=== PATIENT | female | born 1960 | race Caucasian/White ===

== ENCOUNTER 2016-09-04 08:28 | Emergency (ER) | payer OTHER ==
[2016-09-04 08:37] VITALS: BP 147/84
--- NOTE | 2016-09-04 09:40 | UC ---
Respiratory Complaint HPI - HPI Summary HPI Summary: cough for one week. OTC meds not helping. - History of Current Complaint Chief Complaint: UCGeneralIllness Stated Complaint: COUGH,SORE THROAT Time Seen by Provider: 09/04/16 09:22 Hx Obtained From: Patient Hx Last Menstrual Period: 08/07/16 ?: No Onset/Duration: Gradual Onset Timing: Constant Severity Initially: Moderate Severity Currently: Moderate Character: Cough: Nonproductive Aggravating Factors: Deep Breaths, Recumbent Position Alleviating Factors: Bronchodilator Associated Signs And Symptoms: Positive: Chills, Wheezing, URI, Nasal Congestion , Hoarseness. Negative: Fever, Pleuritic Chest Pain, Hemoptysis, Dizziness, Calf Pain, Calf Swelling, Edema, Sinus Discomfort - Allergies/Home Medications Allergies/Adverse Reactions: Allergies Allergy/AdvReac Type Severity Reaction Status Date / Time Aspirin Allergy Unknown Verified 09/04/16 08:37 Reaction Details Home Medications: Home Medications Dextromethorphan Polistirex [Robitussin 12 Hour Cough] DAILY 09/04/16 [History] PMH/Surg Hx/FS Hx/Imm Hx Endocrine History Of: Denies: Diabetes Respiratory History Of: Reports: Asthma Denies: COPD, Bronchitis, Pneumonia, Pulmonary Embolism Cancer History Of: Denies: Breast Cancer - Surgical History Surgical History: Yes Surgery Procedure, Year, and Place: TONSILECTOMY,. Vein surgery left leg - Family History Known Family History: Positive: Other - osteoporosis, - Social History Alcohol Use: Occasionally Substance Use Type: None Smoking Status (MU): Former Smoker Review of Systems All Other Systems Reviewed And Are Negative: Yes Physical Exam Triage Information Reviewed: Yes Appearance: Well-Appearing, No Pain Distress, Well-Nourished - dry cough during exam. Vital Signs: Initial Vital Signs Temp 99.2 F 09/04/16 08:30 Pulse 84 09/04/16 08:30 Resp 16 09/04/16 08:30 BP 147/84 09/04/16 08:30 Pulse Ox 96 09/04/16 08:30 Vital Signs Reviewed: Yes Eye Exam: Normal Eyes: Positive: Conjunctiva Clear. Negative: Conjunctiva Inflamed ENT Exam: Normal ENT: Positive: Normal ENT inspection, Hearing grossly normal, Pharynx normal. Negative: Pharyngeal erythema, Nasal congestion, Nasal drainage, TMs normal, TM bulging, TM dull, TM red, Tonsillar swelling, Tonsillar exudate, Trismus, Muffled/hoarse voice Neck exam: Normal Neck: Negative: Supple, Nontender, No Lymphadenopathy, Nuchal Rigidity, Tenderness @, Enlarged Nodes @ Respiratory Exam: Normal Respiratory: Positive: Chest non-tender, Normal breath sounds, No respiratory distress, No accessory muscle use. Negative: Lungs clear, Respiratory distress , Decreased breath sounds, Accessory muscle use, Crackles, Rhonchi, Stridor, Wheezing Cardiovascular Exam: Normal Cardiovascular: Positive: RRR, No Murmur, Pulses Normal, Brisk Capillary Refill Abdominal Exam: Normal Abdomen Description: Positive: Nontender, No Organomegaly, Soft Bowel Sounds: Positive: Present Musculoskeletal Exam: Normal Musculoskeletal: Positive: Strength Intact, ROM Intact, No Edema Neurological Exam: Normal Neurological: Positive: Alert, Muscle Tone Normal, Fatigued Psychological Exam: Normal Psychological: Positive: Normal Response To Family, Age Appropriate Behavior Skin Exam: Normal Skin: Negative: rashes UC Diagnostic Evaluation - Laboratory O2 Sat by Pulse Oximetry: 96 Respiratory Course/Dx - Differential Dx/Diagnosis Differential Diagnosis/HQI/PQRI: Airway Obstruction, Foreign Body, Aspiration, Asthma, Bronchitis, CHF, Pulmonary Edema, Exacerbation Of COPD, Influenza, Lower Resp Infection, Pneumothorax, Pulmonary Embolism, SARS, Sinusitis, Tuberculosis Provider Diagnoses: acute bronchitis. Discharge - Discharge Plan Condition: Good Disposition: HOME Prescriptions: Acetaminop/Codeine 30 MG TAB* [Tylenol/Codeine 30 MG TAB*] 1 tab PO Q8H PRN #20 tab MDD 3 PRN Reason: Cough Acetaminophen W/ Codeine [Acetaminophen/Codeine #3 300-30 mg] 1 tab PO BID PRN # 20 tab MDD 2 PRN Reason: Cough Azithromyxin JARRED (NF) [Z-Jarred (Zithromax) 250 mg tabs #6] 2 tab PO .TODAY, THEN 1 DAILY #6 tab Patient Education Materials: Acute Bronchitis (ED) Referrals: Shaniqua Jaeger MD [Primary Care Provider] - If Needed
== END 2016-09-04 09:48 | disposition home or self-care (01) ==
LOC: UCCORT 08:28
DX: J20.9 Acute bronchitis, unspecified (principal); Z88.6 Allergy status to analgesic agent; Z87.891 Personal history of nicotine dependence
CPT/HCPCS: 99212; G0463

== ENCOUNTER 2016-09-05 16:40 | Emergency (ER) | payer OTHER ==
[2016-09-05 16:59] VITALS: BP 140/83
--- NOTE | 2016-09-05 18:29 | UC ---
Throat Pain/Nasal Abilio HPI - HPI Summary HPI Summary: pt p/w 8 days of cough, sinus congestion/king, and lad. pt was seen here yesterday and started on abx. 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 however, cough has been putting strain on neck and pt sinus king has been getting worse. - History of Current Complaint Chief Complaint: UCHeadache Stated Complaint: SEVERE KING/NECK PAIN Time Seen by Provider: 09/05/16 17:03 Hx Obtained From: Patient Hx Last Menstrual Period: 08/08/16 ?: No Onset/Duration: Gradual Onset, Lasting Days - 8, Still Present, Worse Since - yesterday - with neck pain and king Pain Intensity: 8 Cough: Nonproductive Associated Signs & Symptoms: Positive: Dysphagia, Sinus Discomfort, Nasal Discharge. Negative: Fever, Vomiting - Allergies/Home Medications Allergies/Adverse Reactions: Allergies Allergy/AdvReac Type Severity Reaction Status Date / Time Aspirin Allergy Unknown Verified 09/05/16 16:45 Reaction Details Home Medications: Home Medications Ibuprofen [Advil] 600 mg PO Q4HR 09/05/16 [History Confirmed 09/05/16] Phenylephrine W/ Dm-GG [Mucinex Congestion & Coug 2.5-5-100 mg/5Ml] 1 tab PO Q6HR PRN 09/05/16 [History Confirmed 09/05/16] Pseudoephedrine HCl [Sudafed Nasal Decongestan] 1 tab PO Q4HR PRN 09/05/16 [ History Confirmed 09/05/16] PMH/Surg Hx/FS Hx/Imm Hx - Additional Past Medical History Additional PMH: fibromyalgia Endocrine History Of: Denies: Diabetes Respiratory History Of: Reports: Asthma Denies: COPD, Bronchitis, Pneumonia, Pulmonary Embolism Cancer History Of: Denies: Breast Cancer - Surgical History Surgical History: Yes Surgery Procedure, Year, and Place: TONSILECTOMY,. Vein surgery left leg - Family History Known Family History: Positive: Other - osteoporosis, Negative: Cardiac Disease - Social History Lives: With Family Alcohol Use: Occasionally Substance Use Type: None Smoking Status (MU): Former Smoker Review of Systems Constitutional: Negative Skin: Negative Eyes: Negative ENT: Nasal Discharge, Other - sinus pain Respiratory: Cough Cardiovascular: Negative Gastrointestinal: Negative Genitourinary: Negative Motor: Negative Neurovascular: Negative Musculoskeletal: Myalgia - neck pain Neurological: Headache Psychological: Negative All Other Systems Reviewed And Are Negative: Yes Physical Exam Triage Information Reviewed: Yes Appearance: Well-Appearing, Well-Nourished, Pain Distress - mild Vital Signs: Initial Vital Signs Temp 99.0 F 09/05/16 16:52 Pulse 88 09/05/16 16:52 Resp 16 09/05/16 16:52 BP 140/83 09/05/16 16:52 Pulse Ox 99 09/05/16 16:52 Vital Signs Reviewed: Yes Eyes: Positive: Conjunctiva Clear. Negative: Discharge ENT: Positive: Hearing grossly normal, Pharynx normal, Nasal congestion, Nasal drainage, TMs normal, Other: - sinus tenderness. Negative: Tonsillar swelling, Muffled/hoarse voice Neck: Positive: Supple, Tenderness @ - paraspinal Respiratory: Positive: Lungs clear, Normal breath sounds, No respiratory distress, No accessory muscle use, Expiration - prolonged Cardiovascular: Positive: RRR, No Murmur Musculoskeletal: Positive: Strength Intact, ROM Intact, No Edema, Other: - paraspinal spasm Neurological: Positive: Alert, Muscle Tone Normal, Other: - cn2-12 intact bl, strength and sensation intact bl, no cerabellar signs, aox3, kernigs and brudzinskys neg Psychological: Positive: Age Appropriate Behavior Skin Exam: Normal Throat Pain/Nasal Course/Dx - Differential Dx/Diagnosis Differential Diagnosis/HQI/PQRI: Sinusitis, URI Provider Diagnoses: cervical strain, sinusitis, acute bronchitis Discharge - Discharge Plan Condition: Stable Disposition: HOME Prescriptions: predniSONE TAB* [Deltasone TAB*] 40 mg PO DAILY #10 tab Patient Education Materials: Sinusitis (ED), Cervical Strain (ED), Acute Bronchitis (ED) Referrals: Shaniqua Jaeger MD [Primary Care Provider] - (follow up in 3-5 days ) Additional Instructions: TRY USING THE NETTI POT IN THE MORNINGS DISCUSSED. YOU MUST ALWAYS USE CLEAN WATER. REMEMBER, POSTURE IS AN IMPORTANT FACTOR IN SINUS DRAINAGE. MOVE YOUR NECK, BREATHE. CORTICOSTEROID MEDICATION: You have been given a medicine of the cortisone class. This medication is used to control inflammation or allergy. It is usually only given for a short period of time, until the acute process subsides. There are usually no side effects from short-term use of cortisone-like medications. Some persons feel an increased sense of well-being and are not sleepy at bedtime. Long-term use of cortisone medications is best avoided, unless required for a severe condition. If your condition does not remit, or relapses after the course of corticosteroid medication, you should consult your physician. Contact the physician if you develop lightheadedness, black or tarry stools , swelling of the legs, or significant rapid change in weight. INHALED BRONCHODILATORS: You have received a prescription for an inhaled bronchodilator -- a medication which stimulates the airways in the lung to dilate. This improves the flow of air in asthma, bronchitis, and emphysema. These medicines have some similarity to adrenaline, and can cause similar side effects: shakiness, racing heart, and a sense of nervousness. These side effects decrease with time. Contact your doctor if these side effects are severe. Do not over-use the medicine. Too-frequent use of the inhaler may make it ineffective. Call your doctor if the inhaler is not controlling your symptoms at the prescribed doses. YOU WOULD LIKELY BENEFIT FROM OSTEOPATHIC TREATMENT. WE RECOMMEND THAT YOU FIND AN OSTEOPATHIC PHYSICIAN IN YOUR AREA WHO FOCUSES EXCLUSIVELY ON OSTEOPATHIC MANIPULATIVE MEDICINE WITH EXPERTISE IN MYOFACIAL, LYMPHATIC, VISCERAL AND INTEROSSEOUS WORK
== END 2016-09-05 18:17 | disposition home or self-care (01) ==
LOC: UCCORT 16:40
DX: J20.9 Acute bronchitis, unspecified (principal); J32.9 Chronic sinusitis, unspecified; S16.1XXA Strain of muscle, fascia and tendon at neck level, initial encounter; X50.3XXA Overexertion from repetitive movements, initial encounter; Y93.9 Activity, unspecified; Y92.9 Unspecified place or not applicable; Z88.6 Allergy status to analgesic agent; Z87.891 Personal history of nicotine dependence
CPT/HCPCS: 99212; G0463

== ENCOUNTER 2017-01-02 07:31 | Day surgery (SDC) | payer OTHER ==
--- NOTE | 2016-12-22 12:56 | HP ---
CC: Dr. Shaniqua Jaeger * ADMISSION HISTORY AND PHYSICAL: DATE OF ADMISSION: 01/02/17 ATTENDING SURGEON: Dr. Yvonne Kevin. (DICTATED BY ALISE HUI) CHIEF COMPLAINT: Symptomatic cholelithiasis. HISTORY OF PRESENT ILLNESS: This is a 56-year-old female who beginning in late August noted symptoms of right upper quadrant pain. This has been largely postprandial and related to higher fat food ingestion. She describes a sharp hot knife sensation in the right upper quadrant and radiating to the back. There has been associated nausea and vomiting as well as bloating. She denies fever or chills. She has had a total of 6 attacks, most lasting between 2 and 3 hours, but one attack lasting up to 9 hours. The last couple of attacks have had some association with dark urine, but no change in color of stools. Her family history is positive for gallbladder disease. Ultrasound was performed on 11/18/16 showing multiple gallstones but without evidence of acute cholecystitis. The common bile duct was normal in size. Lab work on the same date showed normal CBC as well as normal liver function tests and amylase. She met with Dr. Kevin on 12/15/16. Dr. Kevin has reviewed her history and workup. It was felt that she had symptomatic cholelithiasis and recommendation was made for laparoscopic cholecystectomy. The patient understands the indications, risks, benefits, and alternatives of surgery as well as expected perioperative course. She would like to proceed as scheduled with laparoscopic cholecystectomy. She has had ongoing low-grade symptoms in the past week or so and is considering trying to move her surgery up a week. PAST MEDICAL HISTORY: Asthma and environmental allergies, GERD (with history of eosinophilic esophagitis), fibromyalgia, Raynaud's syndrome, vitamin B12 deficiency, dizziness with phyllis vu symptoms (has completed much of workup including EEGs, non-contrast CT of the brain and carotids, all of which was negative, she was seen in consultation by Dr. Steele, an MRI of the brain had also been ordered but has not yet been completed). PAST SURGICAL HISTORY: Tonsillectomy, left lower extremity saphenous vein stripping. No reported surgical or anesthesia complications. CURRENT MEDICATIONS: 1. Omeprazole 20 mg once daily. 2. Flovent 1 puff q. day. 3. ProAir HFA 2 puffs p.r.n. 4. Claritin 10 mg q. day. 5. Probiotic q. day. 6. Vitamin B12 injection 1000 mcg q. month. 7. Carisoprodol 350 mg one-half tablet q.h.s. p.r.n. for back and neck pain. DRUG ALLERGIES: ASPIRIN (hives) (the patient tolerates other NSAIDs). FAMILY HISTORY: Positive for gallbladder disease in her maternal grandfather. There is no known family history of anesthesia problems, bleeding, or clotting disorder. SOCIAL HISTORY: The patient is . She has 2 children. 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 She is a former smoker, quit in 1992. She drinks up to 2 to 3 drinks 2 to 3 times per week. She denies other recreational drug use. REVIEW OF SYSTEMS: General: No additional constitutional symptoms other than those noted in the HPI. She has noted a 13-pound weight loss in the past few months because of food aversion. HEENT: No problems reported. Cardiovascular : She has a long history of arrhythmia, which has been worked up in the past. No hypertension, chest pain, or palpitations. No history of murmur. Respiratory: No recent exacerbations of her asthma, though summer time is more difficult for her. No chronic cough or shortness of breath. GI: She does have GERD symptoms, which are fairly well controlled at present. No lower GI symptoms. She did undergo colonoscopy at around age 54 with removal of multiple benign polyps and recommended followup in 3 years. No interval symptoms. : No problems reported. 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 Endocrine: No diabetes or thyroid dysfunction. Musculoskeletal: She has been evaluated by Dr. Nam for Raynaud's syndrome, but that workup was essentially negative. Neuropsych: She has seen Dr. Steele in consultation for symptoms of dizziness and phyllis vu, see above. PHYSICAL EXAMINATION GENERAL: Well-nourished, well-developed female, in no acute distress. VITAL SIGNS: Height 5 feet 3 inches, weight 145 pounds by history, temperature 97.7, blood pressure 108/64, pulse 66, respirations 16. HEENT: Pupils are equal and round, reactive. EOMs intact. No conjunctival pallor or scleral icterus. Oropharynx: Teeth in good repair. No intraoral lesions. NECK: Anterior cervical nodes are prominent but not enlarged and they are not tender. No thyromegaly or other masses. LUNGS: Clear to auscultation. No wheezes. HEART: Irregularly irregular, but only mildly so. No appreciable murmur. BREASTS: Not examined. ABDOMEN: Soft with mild tenderness in the right upper quadrant. Negative Phillips's sign. The remainder of the abdomen is soft and nontender. GENITALIA: Not done. RECTAL: Not done. BACK: No spinous process or CVA tenderness. EXTREMITIES: No edema. NEUROLOGIC: Grossly intact. SKIN: Warm and dry. No suspicious rashes or lesions noted. IMPRESSION: Symptomatic cholelithiasis. PLAN: Laparoscopic cholecystectomy. ALISE HUI [id number]/[facility] #: [id number] MTDD
[~2017-01-02 07:31] MED LIST: Buffered Lidocaine 0.9% SYRIN* 5 ML/SYR SYRINGE INTRADERM ONE; Dexamethasone TAB* 4 MG PO ONE; Famotidine IV* 10 MG/ML 2 ML (20 mg) IV ONE; Morphine INJ* 2 MG/ML 1 ML SYRINGE IV PRN; PROCHLORPERAZINE INJ 5 MG/ML 2 ML VIAL IV PRN; oxyCODONE/Acetamin 5/325 MG* TAB PO PRN
[2017-01-02 07:33] LABS: UR Preg Internal Control QC Line Present
[2017-01-02] MEDS ORDERED: Buffered Lidocaine 0.9% SYRIN* 5 ML/SYR SYRINGE ONE (07:50)
[2017-01-02] MEDS ORDERED: Dexamethasone TAB* 4 MG ONE (07:50)
[2017-01-02] MEDS ORDERED: Famotidine IV* 10 MG/ML 2 ML (20 mg) ONE (07:50)
[2017-01-02] MEDS ORDERED: Albuterol 2.5 MG/3 ML NEB.SOL* (0.083%) ONE (08:38)
[2017-01-02] MEDS ORDERED: KETAMINE HCL* 50 MG/ML 10 ML VIAL ONE (08:40)
[2017-01-02] MEDS ORDERED: Atracurium* 10 MG/ML 10 ML VIAL ONE (08:40)
[2017-01-02] MEDS ORDERED: fentaNYL* 50 MCG/ML 2 ML VIAL (100 MCG VIAL) ONE ×2 (08:40→10:25)
[2017-01-02] MEDS ORDERED: Bupivacaine 0.25% W/EPI* 50 ML VIAL ONE (08:40)
[2017-01-02] MEDS ORDERED: Midazolam* 1 MG/ML 5 ML VIAL (5 MG) ONE (08:40)
[2017-01-02] MEDS ORDERED: Morphine INJ* 10 MG/ML 1 ML SYRINGE ONE (09:10)
[2017-01-02] MEDS ORDERED: oxyCODONE/Acetamin 5/325 MG* TAB PO PRN (10:02)
[2017-01-02] MEDS ORDERED: PROCHLORPERAZINE INJ 5 MG/ML 2 ML VIAL ONE (10:18)
[2017-01-02] MEDS ORDERED: Lidocaine 2% PF * 5 ML VIAL ONE (10:18)
[2017-01-02] MEDS ORDERED: Phenylephrine INJ* 10 MG/ML 1 ML VIAL (10 MG) ONE (10:18)
[2017-01-02] MEDS ORDERED: Neostigmine Methylsulfate* 2 MG/2 ML SYRINGE ONE (10:18)
[2017-01-02] MEDS ORDERED: Propofol* 10 MG/ML 20 ML BTL IV PUSH ONE (10:18)
[2017-01-02] MEDS ORDERED: Ondansetron INJ* 2 MG/ML VIAL ONE (10:18)
[2017-01-02] MEDS ORDERED: Glycopyrrolate IV* 0.2 MG/ML 1 ML VIAL ONE (10:18)
[2017-01-02] MEDS: fentaNYL* 50 MCG/ML 2 ML VIAL (100 MCG VIAL) IV PRN ×3 (10:26→11:29)
[2017-01-02] MEDS ORDERED: oxyCODONE/Acetamin 5/325 MG* TAB ONE (10:50)
[2017-01-02 12:11] VITALS: BP 141/85
--- NOTE | 2017-01-03 10:04 | OP ---
CC: Dr. Shaniqua Helm * DATE OF OPERATION: 01/02/17 - [facility] DATE OF : 64 SURGEON: Yvonne Kevin MD ANGLESMITH: ALISE Chew ANESTHESIOLOGIST: Vitaly Younger MD ANESTHESIA: General PRE-OP DIAGNOSIS: Symptomatic cholelithiasis. POST-OP DIAGNOSIS: Symptomatic cholelithiasis. OPERATIVE PROCEDURE: Laparoscopic cholecystectomy. INDICATION: Ms. Fung is a 56-year-old woman who presented to the office with symptomatic cholelithiasis prompting the plan for surgical intervention. DESCRIPTION OF PROCEDURE: She was prepared for surgery and brought to the operating room. She was placed on the OR table in supine position and given general anesthesia. The abdomen was prepped and draped in the usual sterile fashion. After infiltrating with local anesthetic, an incision was made in the infraumbilical area and subcutaneous tissue was divided bluntly. The fascia was grasped and incised and a 0 Biosyn stitch was placed on either side of the fascial incision. A trocar was inserted into the abdomen and the abdomen was insufflated. Then, under direct visualization, a subxiphoid and two right subcostal ports were placed after infiltrating with local anesthetic. The gallbladder was visualized and elevated over the liver and dissection was begun in the region of the infundibulum. The fatty tissue around the infundibulum was dissected free from the infundibulum, thus exposed the cystic duct and the cystic common junction. The cystic duct was doubly clipped and divided and then the cystic artery was cleared, clipped, and divided. The gallbladder was taken down from the liver bed using primarily electrocautery, although it was friable enough that it pulled away from the liver bed leaving some raw liver bed surface after the gallbladder was removed. The bleeding from the liver bed was controlled with combination of electrocautery and Surgicel. The gallbladder was removed from the liver bed and placed in an EndoCatch bag and withdrawn from the abdomen through the subxiphoid port. The right upper quadrant was irrigated with saline and irrigation fluid was evacuated and then under direct visualization all ports were removed. The previously placed 0 Biosyn was used to close the fascia at the infraumbilical port site and 4-0 Biosyn was used to close the skin of all incisions. Steri-Strips were applied. All sponge and instrument counts were correct. The patient tolerated the procedure well and was transferred to Recovery in a stable condition. [id number]/[facility] #: [id number] NIKKI
== END 2017-01-02 12:35 | disposition home or self-care (01) ==
LOC: OR 07:31
PROVIDERS: ATTEND Surgery
DX: K80.10 Calculus of gallbladder with chronic cholecystitis without obstruction (principal); J45.909 Unspecified asthma, uncomplicated; K21.9 Gastro-esophageal reflux disease without esophagitis; E53.8 Deficiency of other specified B group vitamins
CPT/HCPCS: 81025; 88304; A9270-GY; J0780; J2250; J2270; J2405; J2704; J3010

== ENCOUNTER 2018-06-11 09:52 | Emergency (ER) | payer OTHER ==
--- OUTSIDE RECORDS SUMMARY | 2018-06-11 11:28 | XMS REPORT | Continuity of Care Document ---
:1960 External Reference #:[id number] Author Name Tamika Del Angel Care Team Providers Name Role Phone Shaniqua Jaeger MD Primary Care Physician Unavailable Payers Type Date Identification Numbers Payment Provider Subscriber Policy Number: [id number] [employer] More [employer] Number: [id number] [address] PayID: [id number] [place] [address] Advance Directives Description No Information Available Problems Date Description Provider Status Onset: 07/17/2016 Dizziness Amarilys Steele M.D. Active Onset: 07/17/2016 Margie vu Amarilys Steele M.D. Active Onset: 09/15/2017 Seizure Thierry Sandoval M.D. Active Onset: 09/15/2017 Skin sensation disturbance Thierry Sandoval M.D. Active Onset: 12/24/2017 Musculoskeletal tenderness Thierry Sandoval M.D. Active Onset: 12/24/2017 White matter disease, unspecified Thierry Sandoval M.D. Active Onset: 12/24/2017 Transient altered mental status Thierry Sandoval M.D. Active Onset: 10/14/2017 Essential hypertension Thierry Sandoval M.D. Active Onset: 10/14/2017 Electroencephalogram abnormal Thierry Sandoval M.D. Active Family History Date Family Member(s) Problem(s) Comments Mother Fibromyalgia Mother Arthritis Mother Diabetes Social History Type Date Description Comments Sex Unknown Marital Status Occupation Disabled ETOH Use Occasionally consumes alcohol ETOH Use consumes 3-4 glasses per week Tobacco Use Start: Unknown End: Patient is a former 1/2 ppd for 15 Unknown smoker years. quit in 1992 Recreational Drug Use Denies Drug Use Smoking Status Reviewed: 05/17/18 Patient is a former 1/2 ppd for 15 smoker years. quit in 1992 Exercise Type/Frequency Exercises regularly Allergies, Adverse Reactions, Alerts Date Description Reaction Status Severity Comments 02/15/2016 Aspirin Allergic asthma, Active hives, trouble Urticaria swallowing Medications Medication Date Status Form Strength Qnty SIG Indications Ordering Provider Cyanocobalamin Active Solution 1000mcg/M 1.5 Unknown /0000 L milliliters intramuscula r [id number]. Benadryl Active Capsules 25mg 1 cap as Unknown Allergy /0000 needed Carisoprodol Active Tablets 350mg 1/2-1 tab by Unknown /0000 mouth as needed Proair HFA Active Aerosol 108(90Bas 2 puffs by Unknown /0000 e) mouth every mcg/Act 4 hours as needed Omeprazole Active Capsules DR 40mg 1 by mouth Unknown /0000 every day Probiotic Active Capsules 1 by mouth Unknown /0000 every day Claritin Active Capsules 10mg 1 tab daily Unknown /0000 Flovent HFA Active Aerosol 220mcg/Ac inhale two Unknown /0000 t puffs by mouth twice a day as needed Nasonex Active Suspension 50mcg/Act two sprays Unknown /0000 each nostril once daily as needed. Vitamin D Active Capsules 500mg 1 tab po qd Unknown /0000 Lyrica Active Capsules 50mg 1 tab po bid Unknown /0000 Multi For Her Active Tablets once a day Unknown /0000 Escitalopram Active Tablets 5mg Take One Unknown Oxalate /0000 Half Tablet By Mouth Once Daily For 4 Days Then Take One Tablet By Mouthevery Day Diltiazem HCL Active Tablets 30mg Take One Unknown /0000 Tablet By Mouth Twice A Day Hydrocodone-Mata 12/22 Hx Tablets 5-325mg 15tab 1 or 2 Yvonne Keaton taminophen /2016 s tablets by Herberth mouth every MD 4-6 hours as needed for moderately severe pain Lidoderm 03/07 Hx Patches 5% 30uni 1 apply to R20.8 ts affected [facility], area 12 M.D. hours on, 12 hours off Symbicort Hx Aerosol 160-4.5mc 2 puff twice Unknown /0000 g/Act a day - 07/16 Calcium 00 Hx Capsules 200-100-3 Unknown 600/Magnesium /0000 3.3mg-mg- 300/Vitamin D Unit Ibuprofen Hx Capsules 200mg as needed Unknown /0000 - 05/16 Cartia XT Hx Caps ER 120mg Take One Unknown /0000 24HR Capsule By - Mouth Every /2017 Immunizations Description No Information Available Vital Signs Date Vital Result Comment 05/17/2018 11:32am Height 64 inches 5'4" Weight 157.50 lb Heart Rate 74 /min BP Systolic 130 mmHg BP Diastolic 84 mmHg BMI (Body Mass Index) 27.0 kg/m2 02/12/2018 9:35am Height 64 inches 5'4" Weight 160.00 lb Heart Rate 70 /min BP Systolic Sitting 132 mmHg BP Diastolic Sitting 88 mmHg Respiratory Rate 16 /min BMI (Body Mass Index) 27.5 kg/m2 12/24/2017 2:17pm Height 64 inches 5'4" Weight 157.00 lb Heart Rate 77 /min BP Systolic 136 mmHg BP Diastolic 90 mmHg BMI (Body Mass Index) 26.9 kg/m2 10/14/2017 9:18am Height 64 inches 5'4" Weight 148.00 lb Heart Rate 70 /min BP Systolic 134 mmHg BP Diastolic 98 mmHg Respiratory Rate 16 /min Pain Level 6 O2 % BldC Oximetry 99 % BMI (Body Mass Index) 25.4 kg/m2 09/15/2017 8:33am Height 64 inches 5'4" Weight 145.00 lb Heart Rate 78 /min Respiratory Rate 16 /min BMI (Body Mass Index) 24.9 kg/m2 01/30/2017 8:55am Heart Rate 60 /min Respiratory Rate 16 /min Body Temperature 98.5 F 01/09/2017 11:03am Heart Rate 60 /min BP Systolic 118 mmHg BP Diastolic 66 mmHg Respiratory Rate 16 /min Body Temperature 98.3 F 12/22/2016 9:52am Height 63.5 inches 5'3.50" Weight 147.00 lb Heart Rate 66 /min BP Systolic 108 mmHg BP Diastolic 64 mmHg Respiratory Rate 16 /min Body Temperature 97.7 F BMI (Body Mass Index) 25.6 kg/m2 12/15/2016 1:47pm Height 63.5 inches 5'3.50" Weight 147.00 lb Heart Rate 72 /min BP Systolic 138 mmHg BP Diastolic 72 mmHg Respiratory Rate 16 /min Body Temperature 98.8 F BMI (Body Mass Index) 25.6 kg/m2 07/17/2016 8:46am Height 63.5 inches 5'3.50" Weight 152.00 lb Heart Rate 68 /min BP Systolic Sitting 122 mmHg BP Diastolic Sitting 84 mmHg Respiratory Rate 16 /min BMI (Body Mass Index) 26.5 kg/m2 03/07/2016 11:13am Height 63.5 inches 5'3.50" Weight 155.00 lb Heart Rate 64 /min BP Systolic Sitting 128 mmHg BP Diastolic Sitting 80 mmHg Body Temperature 99.4 F Pain Level 4 BMI (Body Mass Index) 27.0 kg/m2 02/15/2016 10:00am Height 63.5 inches 5'3.50" Weight 153.50 lb Heart Rate 64 /min BP Systolic Sitting 110 mmHg BP Diastolic Sitting 80 mmHg Respiratory Rate 14 /min Body Temperature 98.5 F Pain Level 4 BMI (Body Mass Index) 26.8 kg/m2 Results Test Date Facility Test Result H/L Range Note Laboratory test [facility] Miscellaneous Test See Comment [address] [place] [address] [phone] CSF West Nile [facility] CSF West Nile Negative Negative Igg/Igm 8 [place] [address] [phone] CSF West Nile Virus IgM Ab Negative Negative CSF [place] Interpretation See Comment 2 CSF Cell Count 01/12/2018 [facility] Body Fluid Cerebral Spinal [address] [place], [place] [id number] [phone] Body Fluid Appearance Clear Body Fluid Color Colorless CSF Tube # 4 Body Fluid Volume 1 mL Body Fluid WBC 1 /mcL Body Fluid RBC 1 /mcL Body Fluid Lymph 70 % Body Fluid Craig 30 % Body Fluid Total Cells Counted 20 Fluid Reviewed By MD (SEE NOTE) 3 CSF Culture & 01/12/2018 [facility] CSF Culture SEE RESULT [address] [place] [address] [phone] CSF Studies 01/12/2018 [facility] CSF Protein 47 mg/dL High 15 -[address] [place], [place] [address] [phone] CSF Glucose 65 mg/dL N 40-70 Oligoclonal Bands <pending> CSF Immunoglobulin G (Igg) <pending> CSF Angiotension Conv Enz <pending> Viral Culture Non Respiratory See Comment 5 Body Fluid Protein 01/12/2018 [facility] Body Fluid Type TNP () [address] [place] [address] [phone] BF Total Protein TNP () 7 BF Albumin TNP () 8 Oligoclonal Bands 01/12/2018 [facility] CSF Oligoclonal [address] [place] [address] [phone] Serum Oligoclonal Bands 0 bands Oligoclonal Proteins Interpret 0 bands <4 9 Laboratory test 01/12/2018 [facility] Lyme Disease CSF <pending > finding [address] [place] [address] [phone] CSF Immunoglobulin 01/12/2018 [facility] CSF Immunoglobulin 0.50 <=0. G (Igg) [address] [place] [address] [phone] CSF Igg 3.2 mg/dL <=8.1 10 CSF Albumin 24.6 mg/dL <=27.0 11 CSF IgG/Albumin Ratio 0.13 <=0.21 CSF Immunoglobulin G Synthesis 0.03 mg/24h <=12 Immunoglobulin G 1250 mg/dL 767 - 1590 Albumin 4880 mg/dL Abnormal 12 Serum IgG/Albumin Ratio 0.26 <=0.40 13 Herpes Simplex 01/12/2018 [facility] HSV 1 PCR, Negative Negative Virus PCR CSF [address] [place] [address] [phone] HSV 2 PCR, CSF Negative Negative 14 Laboratory test 01/12/2018 [facility] RPR CSF Negative Negative [address] [place] [address] [phone] CSF Angiotension Conv Enz 1.3 U/L 0.0-2.5 16 Coccidiodes Antibody CSF TNP () 17 Cryptococcal Antigen TNP Negative 18 Protein 01/12/2018 [facility] Total 7.3 g/dL 6.3 - Electrophoresis [address] Protein(Pep) 7.9 [place] [address] [phone] Albumin 3.6 g/dL 3.4-4.7 Alpha-1 Globulin 0.3 g/dL 0.1-0.3 Alpha-2 Globulin 0.9 g/dL 0.6-1.0 Beta Globulin 1.0 g/dL 0.7-1.2 Gamma Globulin 1.5 g/dL 0.6-1.6 Albumin/Globulin Ratio 0.99 Impression See Comment 19 Basic Metabolic Panel 01/12/2018 [facility] Sodium 140 mmol/L N 135-145 [address] [place] [address] [phone] Potassium 4.2 mmol/L N 3.5-5.0 Chloride 102 mmol/L N 101-111 Co2 Carbon Dioxide 30 mmol/L N 22-32 Anion Gap 8 mmol/L N 2-11 Glucose 103 mg/dL High 70-100 Blood Urea Nitrogen 11 mg/dL N 6-24 Creatinine 0.76 mg/dL N 0.51-0.95 BUN/Creatinine Ratio 14.5 N 8-20 Calcium 9.2 mg/dL N 8.6-10.3 Egfr Non- 79.0 >60 Egfr 95.6 >60 20 Comp Metabolic Panel 01/30/2017 [facility] Sodium 137 mmol/L N 133-145 [address] [place] [address] [phone] Potassium 3.8 mmol/L N 3.5-5.0 Chloride 103 mmol/L N 101-111 Co2 Carbon Dioxide 29 mmol/L N 22-32 Anion Gap 5 mmol/L N 2-11 Glucose 85 mg/dL N 70-100 Blood Urea Nitrogen 10 mg/dL N 6-24 Creatinine 0.68 mg/dL N 0.51-0.95 BUN/Creatinine Ratio 14.7 N 8-20 Calcium 8.9 mg/dL N 8.6-10.3 Total Protein 7.0 g/dL N 6.4-8.9 Albumin 4.2 g/dL N 3.2-5.2 Globulin 2.8 g/dL N 2-4 Albumin/Globulin Ratio 1.5 N 1-3 Total Bilirubin 0.60 mg/dL N 0.2-1.0 Alkaline Phosphatase 44 U/L N 34-104 Alt 12 U/L N 7-52 Ast 14 U/L N 13-39 Egfr Non- 89.8 N >60 Egfr 115.5 N >60 21 CBC Auto Diff 01/30/2017 [facility] White Blood 5.8 10^3/uL N 3.5-10.[address] [place] [address] [phone] Red Blood Count 4.47 10^6/uL N 4.0-5.4 Hemoglobin 13.7 g/dL N 12.0-16.0 Hematocrit 42 % N 35-47 Mean Corpuscular Volume 93 fL N 80-97 Mean Corpuscular Hemoglobin 31 pg N 27-31 Mean Corpuscular HGB Conc 33 g/dL N 31-36 Red Cell Distribution Width 14 % N 10.5-15 Platelet Count 251 10^3/uL N 150-450 Mean Platelet Volume 9 um3 N 7.4-10.4 Abs Neutrophils 3.2 10^3/uL N 1.5-7.7 Abs Lymphocytes 2.0 10^3/uL N 1.0-4.8 Abs Monocytes 0.5 10^3/uL N 0-0.8 Abs Eosinophils 0 10^3/uL N 0-0.6 Abs Basophils 0 10^3/uL N 0-0.2 Abs Nucleated RBC 0.01 10^3/uL N Granulocyte % 54.6 % N 38-83 Lymphocyte % 34.8 % N 25-47 Monocyte % 9.4 % High 1-9 Eosinophil % 0.7 % N 0-6 Basophil % 0.5 % N 0-2 Nucleated Red Blood Cells % 0.1 N Laboratory test 01/02/2017 [facility] Surgical SEE RESULT [address] [place] [address] [phone] Laboratory test 01/02/2017 [facility] (HCG) Negative N Negative [address] [place] [address] [phone] Laboratory test 02/22/2016 [facility] Erythrocyte Sed 17 mm/Hr N 0-30 [address] [place] [address] [phone] Anti Nuclear Antibody 1.3 U Abnormal 25 Centromere Auto Abs <0.2 U N 26 Celiac Panel 02/22/2016 [facility] Tissue Transglutaminase <1.2 U/mL N [address] [place] [address] [phone] Immunoglobulin A 159 mg/dL N 61 - 356 Celiac Interpretation See Comment N 28 Laboratory test 02/22/2016 [facility] TSH (Thyroid 2.29 mcIU/mL N 0.34-5.[address] Stim [place]) [place] [address] [phone] Rheumatoid Factor <15 IU/mL N <15 30 Anca AB Ser If 02/22/2016 [facility] C-Anca Negative N Negative [address] [place] [address] [phone] P-Anca Negative N Negative 31 Laboratory test 02/22/2016 [facility] C Reactive 4.67 mg/L N < 5.00 32 finding [address] [facility] [place] [address] [phone] Creatine Kinase(CK) 56 U/L N 10-223 33 Angiotensin Converting Enzyme 18 U/L N 8 - 53 34 Sophie Igg AB Reflex 02/22/2016 [facility] SS-A/Ro Antibody <0.2 U N [address] [place] [address] [phone] SS-B/La Antibody <0.2 U N 36 Sm (Tejeda) IgG Antibody <0.2 U N 37 U1-nRNP Antibody <0.2 U N 38 Scl-70 (Scleroderma) Antibody <0.2 U N 39 Riana-1 Antibody <0.2 U N 40 Laboratory test 02/22/2016 [facility] Anti Double <12.3 IU/mL N 41 finding 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 A negative result in a patient with appropriate exposure history and symptoms consistent with neuroinvasive Lyme disease should not be used to exclude infection. Testing for antibodies to Lyme Borrelia species in serum should be performed. ADDITIONAL INFORMATION This test was developed and its performance characteristics determined by [facility] in a manner consistent with CLIA requirements. This test has not been cleared or approved by the U.S. Food and Drug Administration. Lyme [employer] ASSEMBLER Infection IgG, S See Comment RESULT: Sample for reflex testing Test Performed by: [facility] [place] [address] 2 No antibodies to WNV detected. Repeat testing in 10-14 days if clinical suspicion persists. ADDITIONAL INFORMATION This test has been modified from the fish bait processing supervisor's instructions. Its performance characteristics were determined by [facility] in a manner consistent with CLIA requirements. This test has not been cleared or approved by the U.S. Food and Drug Administration. Test Performed by: [facility] [place] [address] 3 No evidence of an acute inflammatory response. No evidence of malignancy. Reviewed by Janine Benton MD 4 SEE RESULT BELOW Name: BLAIRE FUNG : [address]: Heri Brady MD Acct: [id number] Unit: [id number] AGE: 57 Location: PAIN Re01/12/18 SEX: F Status: REG REF SPEC: [id number] CAROLYN: 01/12/18 [facility] [address]: Thierry Sandoval MD REQ: [id number] RECD: 01/12/18 STATUS: RACH KIMBLE DR: Heri Jaeger MD _ SOURCE: CSF SPDESC: ORDERED: CSF Cult/GS/S, AFB Cult Smear/R Procedure Result Reported Site CSF Gram Stain Final 01/12/18- 1253 ML No Neutrophils Observed No Organisms Seen Preparation By Cytospin Smear CSF Culture Final 01/16/18- 0849 ML No Growth Day 4 Acid Fast Stain - Direct Final 01/12/18- 1524 ML AFB Smear Result No Acid Fast Bacillus Present (Negative) Preparation By Cytospin Smear Due to limited sensitivity of the smear, results should be used as an adjunct in evaluating the patient's status. This specimen has been sent to referral laboratory for mycobacterial culture. * - [facility] . END OF REPORT DEPARTMENT OF PATHOLOGY, [address] [place] [address] Genaro Lutz M.D. Director [facility] # [id number] 5 SOURCE: CEREBROSPINAL FLUID VIRAL CULTURE, NON RESPIRATORY FINAL No growth after 42 days of incubation. Test Performed by: No growth after 14 days of incubation. Test Performed by: [address] [address] CORRECTED REPORT --- Corrected on 02/26/18 1115 --- Culture Result previously reported as: See Comment SOURCE: CEREBROSPINAL FLUID VIRAL CULTURE, NON RESPIRATORY FINAL No growth after 14 days of incubation. Test Performed by: [address] [address] 6 REVISED RESULTS Electrophoresis, Protein, BF was cancelled on 01/15/2018 at 12:26; Quantity not sufficient. PREVIOUSLY REPORTED CSF (Reported 01/13/2018 13:26) 7 Electrophoresis, Protein, BF was cancelled on 01/15/2018 at 12:26; Quantity not sufficient. 8 Electrophoresis, Protein, BF was cancelled on 01/15/2018 at 12:26; Quantity not sufficient. Test Performed by: [address] [address] 9 The oligoclonal band assay detected 3 or fewer unique IgG bands in the CSF. This is a negative result. Test Performed by: [address] [address] 10 ADDITIONAL INFORMATION This test has been modified from the fish bait processing supervisor's instructions. Its performance characteristics were determined by [facility] in a manner consistent with CLIA requirements. This test has not been cleared or approved by the U.S. Food and Drug Administration. 11 ADDITIONAL INFORMATION This test has been modified from the fish bait processing supervisor's instructions. Its performance characteristics were determined by [facility] in a manner consistent with CLIA requirements. This test has not been cleared or approved by the U.S. Food and Drug Administration. 12 REFERENCE VALUE 3200 - 4800 13 Test Performed by: [facility] - [address] [address] 14 Test Performed by: [facility] [place] [address] 15 Test Performed by: [facility] - [address] [address] 16 This test was developed and its performance characteristics determined by [facility]. The U.S. Food and Drug Administration has not approved or cleared this test; however, FDA clearance or approval is not currently required for clinical use. The results are not intended to be used as the sole means for clinical diagnosis or patient management decisions. Performed by [facility], [address] [place] [id number] [email or web address], Raymon Benjamin MD - Lab. Director Test Performed by: [facility] [address] [place] [id number] 17 Cocci CF and ID, CSF was cancelled on 01/15/2018 at 12:26; Quantity not sufficient. Test Performed by: [facility] - [address] [address] 18 REVISED RESULTS Cryptococcus Ag Screen w/Titer, CSF was cancelled on 01/15/2018 at 12:26; Quantity not sufficient. PREVIOUSLY REPORTED Negative (Reported 01/13/2018 21:54) A single negative result does not exclude the diagnosis of cryptococcosis. (Reported 01/13/2018 21:54) Test Performed by: [facility] - [facility] [address] [place] [address] CORRECTED REPORT --- Corrected on 01/15/18 1330 --- CSF Crypto AG previously reported as: Negative A single negative result does not exclude the diagnosis of cryptococcosis. Test Performed by: [facility] [address] [place] [address] 19 RESULT: No apparent monoclonal protein on serum electrophoresis. Test Performed by: [facility] - [facility] [address] [place] [address] 20 Because ethnic data is not always readily available, this report includes an eGFR for both -Americans and non- Americans. The National Kidney Disease Education Program (NKDEP) does not endorse the use of the MDRD equation for patients that are not between the ages of 18 and 70, are , have extremes of body size, muscle mass, or nutritional status, or are non- or non-. According to the National Kidney Foundation, irrespective of diagnosis, the stage of the disease is based on the level of kidney function: Stage Description GFR(mL/min/1.73 m(2)) 1 Kidney damage with normal or decreased GFR 90 2 Kidney damage with mild decrease in GFR 60-89 3 Moderate decrease in GFR 30-59 4 Severe decrease in GFR 15-29 5 Kidney failure <15 (or dialysis) 21 Because ethnic data is not always readily available, this report includes an eGFR for both -Americans and non- Americans. The National Kidney Disease Education Program (NKDEP) does not endorse the use of the MDRD equation for patients that are not between the ages of 18 and 70, are , have extremes of body size, muscle mass, or nutritional status, or are non- or non-. According to the National Kidney Foundation, irrespective of diagnosis, the stage of the disease is based on the level of kidney function: Stage Description GFR(mL/min/1.73 m(2)) 1 Kidney damage with normal or decreased GFR 90 2 Kidney damage with mild decrease in GFR 60-89 3 Moderate decrease in GFR 30-59 4 Severe decrease in GFR 15-29 5 Kidney failure <15 (or dialysis) 22 SEE RESULT BELOW Name: BLAIRE FUNG : [address]: Yvonne Kevin MD Acct: [id number] Unit: [id number] AGE: 56 Location: OR Re01/02/17 SEX: F Status: DE[facility] SPEC: [id number] CAROLYN: 01/02/17-[address] [facility] [address]: Yvonne Kevin MD REQ: [id number] RECD: 01/02/17-1206 STATUS: SOUT _ ORDERED: LEVEL 3 FINAL DIAGNOSIS Gallbladder, cholecystectomy: -- Chronic cholecystitis with cholelithiasis and cholesterolosis. PRE-OPERATIVE DIAGNOSIS Calculus of gallbladder with chronic cholecystitis GROSS DESCRIPTION The specimen is received in formalin labeled, Gallbladder, and consists of a 7.2 x 2.8 x 1.1 cm intact gallbladder. The serosa is glistening kyle-pink. The wall thickness averages less than 0.1 cm. The mucosa is highly trabeculated yellow-pink with multiple encapsulated lobulated choleliths approaching the cystic duct. The lumen contains gelatinous apple green bile admixed with ample yellow lobulated choleliths ranging from 0.2 x 0.2 x 0.2 cm to 0.7 x 0[address] Tester sections are submitted in one cassette. Signed (signature on file) Genaro Lutz MD 1341 END OF REPORT * ML=Testing performed at [facility] DEPARTMENT OF PATHOLOGY, [address] [place] [address] Genaro Lutz M.D. Director [facility] # [id number] 23 If is still suspected, please repeat test after 48 to 72 hours. This test detects intact HCG only and is indicated for the early detection of . 24 Please check this week 25 Interpretation: Weak Positive (1.1-2.9) REFERENCE VALUE <=1.0 (Negative) Test Performed by: [place] [address] Telemarketing Agent: Nigel Francis II, M.D., Ph.D. 26 REFERENCE VALUE <1.0 (Negative) Test Performed by: [place] [address] Telemarketing Agent: Nigel Francis II, M.D., Ph.D. 27 REFERENCE VALUE <4.0 (Negative) Test Performed by: [place] [address] Telemarketing Agent: Nigel Francis II, M.D., Ph.D. 28 Negative serology. Celiac disease unlikely. However, approximately 10% of patients with celiac disease are seronegative. Also, patients who are already adhering to a gluten-free diet may be seronegative. If celiac disease is highly clinically suspected, consider HLA-DQ typing. Test Performed by: [facility] [place] [address] Telemarketing Agent: Nigel Francis II, M.D., Ph.D. 29 Please check this week 30 Test Performed by: [facility] [place] [address] Telemarketing Agent: Nigel Francis II, M.D., Ph.D. 31 Negative for cANCA and pANCA patterns by immunofluorescence. ADDITIONAL INFORMATION This test was developed and its performance characteristics determined by [facility] in a manner consistent with CLIA requirements. This test has not been cleared or approved by the U.S. Food and Drug Administration. Test Performed by: [facility] [place] [address] Telemarketing Agent: Nigel Francis II, M.D., Ph.D. 32 Acute inflammation: >10.00 33 Please check this week 34 Test Performed by: [place] [address] Telemarketing Agent: Nigel Francis II, M.D., Ph.D. 35 REFERENCE VALUE <1.0 (Negative) 36 REFERENCE VALUE <1.0 (Negative) 37 REFERENCE VALUE <1.0 (Negative) 38 REFERENCE VALUE <1.0 (Negative) 39 REFERENCE VALUE <1.0 (Negative) 40 REFERENCE VALUE <1.0 (Negative) Test Performed by: [place] [address] Telemarketing Agent: Nigel Francis II, M.D., Ph.D. 41 REFERENCE VALUE <30.0 (Negative) Test Performed by: [place] [address] Telemarketing Agent: Nigel Francis II, M.D., Ph.D. 42 REFERENCE VALUE <10.0 (Negative) 43 REFERENCE VALUE <10.0 (Negative) Test Performed by: [place] [address] Telemarketing Agent: Nigel Francis II, M.D., Ph.D. Procedures Date Code Description Status 09/28/2017 58349 Stress Test Completed 01/02/2017 41338 Laparoscopy Cholecystectomy Completed 01/02/2017 22609 Laparoscopy Cholecystectomy Completed 08/08/2016 68560 EEG Recording Awake & Drowsy Completed 07/22/2016 42847 EEG Recording Awake & Drowsy Completed Encounters Type Date Location Provider Dx Diagnosis Office Visit 02/12/2018 [place], R20.0 Anesthesia of 9:30a [facility] [place] skin R90.82 White matter disease, unspecified M79.7 Fibromyalgia Office Visit 12/24/2017 2:30p [place] Oswaldo Sheppard2 Dizziness and [facility] rodriguez R20.0 Anesthesia of skin R90.82 White matter disease, unspecified R40.4 Transient alteration of awareness M79.1 Myalgia Office Visit 10/14/2017 [place]Osw[place]do Neal2 Dizziness and 9:15a [facility] No rodriguez Cma M79.7 Fibromyalgia R94.01 Abnormal electroencephalogram [EEG] I10 Essential (primary) hypertension Office Visit 09/15/2017 8:30a [place] Oswaldo Sheppard2 Dizziness and [facility] rodriguez M79.7 Fibromyalgia R20.0 Anesthesia of skin R90.82 White matter disease, unspecified R94.01 Abnormal electroencephalogram [EEG] Office Visit 12/15/2016 1:30p Surgical Yvonne Keaton K80.10 [facility] Kevin MD gallbladder w chronic cholecyst w/o obstruction Office Visit 07/17/2016 9:00a [place] Cortney Rodriguez R42 Dizziness and [facility] Rose R40.4 Transient alteration of awareness Office Visit 03/07/2016 11:20a Rheumatology Teo Nam 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 at [place] [facility]05/17/2018 - Thierry Sandoval M.D.R20.0 Anesthesia of skinFollow up:Follow up in 12 weeksRecommendations:Call me 1 week after MRIR90.82 White matter disease, jikylhjjlydZ82.7 VqbbjdpmtorsT81 Dizziness and qelxswhvsO12.4 Transient alteration of awareness
[2018-06-11 11:35] VITALS: BP 133/70
--- NOTE | 2018-06-11 12:38 | UC ---
Neck Pain HPI - HPI Summary HPI Summary: Pt c/o neck, upper back and left shoulder pain. Pt states that she slipped on her deck 10 days ago and fell on buttocks and back. Pt had c6 and c7 spinal fusion 10 weeks ago. Pt has hx of fibromyalgia. - History of Current Complaint Chief Complaint: UCUpperExtremity Stated Complaint: NECK, RT SHOULDER, LOWER BACK PAIN, S/P FALL Time Seen by Provider: 06/11/18 11:32 Hx Obtained From: Patient Hx Last Menstrual Period: 08/08/16 ?: No Onset/Duration Of Injury/Symptoms: Days Mechanism Of Injury: Blunt Trauma - fall from standing Timing: Constant Onset/Duration: Sudden Onset, Lasting Days, Still Present Severity: Moderate Pain Intensity: 7 Location: Diffuse - left shoulder, upper back and shoulders Character: Dull, Aching, Stiff Aggravating Factors: Position, Movement Alleviating Factors: Nothing Associated Signs & Symptoms: Positive: Negative Related History: Other - previous neck surgery - Risk Factors Meningitis Risk Factors: Negative - Allergies/Home Medications Allergies/Adverse Reactions: Allergies Allergy/AdvReac Type Severity Reaction Status Date / Time aspirin Allergy Difficulty Verified 06/11/18 11:34 Swallowing diltiazem [From Cartia XT] Allergy Hives Verified 06/11/18 11:34 environmental Allergy abd Uncoded 01/14/18 10:16 discomfort Home Medications: Home Medications dilTIAZem HCl [Cardizem 120 MG LA] 60 mg PO DAILY 06/11/18 [History Confirmed ] PMH/Surg Hx/FS Hx/Imm Hx Previously Healthy: Yes - fibromyalgia - Surgical History Surgical History: Yes Surgery Procedure, Year, and Place: TONSILECTOMY,. Vein surgery left leg - VARICOSE VEINS. CHOLECYSTECTOMY. C-SPINE FUSION - Family History Known Family History: Positive: Other - osteoporosis, Negative: Cardiac Disease - Social History Occupation: Retired Lives: With Family Alcohol Use: Weekly Alcohol Amount: 7-8 per week Substance Use Type: None Smoking Status (MU): Former Smoker Amount Used/How Often: pack a day for 10 years Have You Smoked in the Last Year: No When Did the Patient Quit Smoking/Using Tobacco: 1992 Review Of Systems Constitutional: Positive: Negative Skin: Positive: Negative Eyes: Positive: Negative ENT: Positive: Negative Respiratory: Positive: Negative Cardiovascular: Positive: Negative Gastrointestinal: Positive: Negative Genitourinary: Positive: Negative Musculoskeletal: Positive: Arthralgia, Decreased ROM, Myalgia Neurological: Positive: Headache Psychological: Positive: Negative All Other Systems Reviewed And Are Negative: No Physical Exam Triage Information Reviewed: Yes Appearance: Pain Distress Vital Signs: Initial Vital Signs Temp 98.3 F 06/11/18 11:28 Pulse 62 06/11/18 11:28 Resp 18 06/11/18 11:28 BP 133/70 06/11/18 11:28 Pulse Ox 100 06/11/18 11:28 Vital Signs Reviewed: Yes Eye Exam: Normal ENT Exam: Normal Dental Exam: Normal Neck exam: Other - decreased ROM, Respiratory Exam: Normal Cardiovascular Exam: Normal Musculoskeletal: Positive: Strength Limited @ - +1 bialteral hand and forearm strength., ROM Limited @ - neck and bialteral shoulders. Neurological Exam: Normal Psychological Exam: Normal Skin Exam: Normal Neck Pain Course/Dx - Differential Dx/Diagnosis Differential Dx/HQI/PQRI: Cervical Fracture, Sprain, Strain, Torticollis Provider Diagnosis: Neck pain, acute, Left shoulder pain Discharge - Sign-Out/Discharge Documenting (check all that apply): Patient Departure All imaging exams completed and their final reports reviewed: Yes - Discharge Plan Condition: Stable Disposition: HOME Patient Education Materials: Shoulder Pain (ED), Neck Pain (ED) Referrals: Shaniqua Jaeger MD [Primary Care Provider] - If Needed Additional Instructions: PLEASE FOLLOW UP WITH YOUR SURGEON SOON POSSIBLE. - Billing Disposition and Condition Condition: STABLE Disposition: Home
== END 2018-06-11 12:44 | disposition home or self-care (01) ==
LOC: UCCORT 09:52
DX: M54.2 Cervicalgia (principal); M25.512 Pain in left shoulder; W01.0XXA Fall on same level from slipping, tripping and stumbling without subsequent striking against object, initial encounter; Y92.9 Unspecified place or not applicable; Z88.6 Allergy status to analgesic agent; Z88.8 Allergy status to other drugs, medicaments and biological substances; Z87.891 Personal history of nicotine dependence
CPT/HCPCS: 72125; 99212; G0463

== ENCOUNTER 2019-06-29 16:55 | Emergency (ER) | payer SELFPAY ==
--- OUTSIDE RECORDS SUMMARY | 2019-06-29 17:31 | XMS REPORT | Continuity of Care Document ---
:1960 External Reference #:[id number] Author Name Teo Nam M.D. (transmitted by agent of provider Nicolasa Scott) Address [address] [place] [address] Problems Active Problems Provider Date Dizziness Amarilys Steele M.D. Onset: 07/17/2016 Margie vu Amarilys Steele M.D. Onset: 07/17/2016 Seizure Thierry Sandoval M.D. Onset: 09/15/2017 Skin sensation disturbance Thierry Sandoval M.D. Onset: 09/15/2017 Electroencephalogram abnormal Thierry Sandoval M.D. Onset: 10/14/2017 Essential hypertension Thierry Sandoval M.D. Onset: 10/14/2017 Transient altered mental status Thierry Sandoval M.D. Onset: 12/24/2017 White matter disease, unspecified Thierry Sandoval M.D. Onset: 12/24/2017 Musculoskeletal tenderness Thierry Sandoval M.D. Onset: 12/24/2017 Dysphagia Thierry Sandoval M.D. Onset: 08/10/2018 Neck pain Thierry Sandoval M.D. Onset: 04/26/2019 Fibromyalgia Thierry Sandoval M.D. Onset: 01/13/2019 Social History Type Date Description Comments Sex Unknown ETOH Use Occasionally consumes alcohol ETOH Use consumes 3-4 glasses per week Tobacco Use Start: Unknown End: Patient is a former 1/2 ppd for 15 Unknown smoker years. quit in 1992 Recreational Drug Use Denies Drug Use Smoking Status Reviewed: 05/23/19 Patient is a former 1/2 ppd for 15 smoker years. quit in 1992 Exercise Type/Frequency Exercises regularly Allergies, Adverse Reactions, Alerts Active Allergies Reaction Severity Comments Date Aspirin Allergic asthma, hives, trouble 02/15/2016 Urticaria swallowing Tomatoes stomach aches, acid Mild 05/23/2019 reflux Elmer Allergenic Difficulty breathing Moderate 05/23/2019 Extract Envarsus Difficulty breathing, Moderate 05/23/2019 animals including dogs, cats Medications Active Medications SIG Qnty Indications Ordering Date Provider Naltrexone HCL 4.5 mg compounded in Unknown Powder capsules by mouth every day to start at 0.5 mg (max 4.5 mg) Pregabalin take 1 capsule by Unknown 50mg Capsules mouth three times a day Bactrim 1 by mouth every Unknown 400-80mg Tablets other day Breo Ellipta 1 puff inhaled daily Unknown 100-25mcg/Inh Aerosol Steva Liquid 20 Drops Twice A Day Unknown Minocycline HCL take one Unknown 100mg capsule/tablet by Capsules mouth twice daily Plaquenil 1 by mouth every day Unknown 200mg Tablets for 1 week then 2 by mouth daily ongoing Nystatin 4 milliliters four Unknown [id number]/ML times a day, swish Suspension and swallow for 10 days Nac 1 Cap A Day PO Unknown Body Bio 1 Twice A Day Unknown Saccharomyces 1 2X A Day Unknown Boulardii Interogenic Int 1` Cap A Day Unknown Ortho-Biotic 100mg Once A Day Unknown Triadphortie Furnas 1/2 teaspoon a day Unknown Photo Capsule 1tab a day po Unknown SPM 2caps a day po Unknown Magnesium 2 cap by mouth Unknown 500mg Capsules Tizanidine HCL Take One To Two Unknown 2mg Tablets By Mouth Tablets Three Times A Day as Needed Baclofen 1 tab during the day Macadam, 10mg Tablets po Shaniqua Rodriguez MD Diltiazem HCL Take One Tablet By Unknown 30mg Mouth Twice A Day Tablets Escitalopram Oxalate Take One tab Unknown 10mg Tablets Vitamin D 10,000 1 tab po qd Unknown 1000Unit Tablets Nasonex two sprays each Unknown 50mcg/Act nostril once daily Suspension as needed. Claritin 1 tab daily Unknown 10mg Capsules Probiotic 1 by mouth every day Unknown Capsules Omeprazole 1/2 by mouth every Unknown 40mg Capsules day DR Brandon DUNN 2 puffs by mouth Unknown 108(90Base) every 4 hours as mcg/Act Aerosol needed Carisoprodol 1 tab by mouth as Unknown 350mg needed Tablets Benadryl Allergy 1 cap as needed Unknown 25mg Capsules Cyanocobalamin 1.5 milliliters Unknown 1000mcg/ML intramuscular Solution [id number]. Immunizations Description No Information Available Vital Signs Date Vital Result Comment 05/23/2019 11:43am Height 64 inches 5'4" Weight 151.00 lb Heart Rate 74 /min BP Systolic Sitting 142 mmHg BP Diastolic Sitting 89 mmHg Body Temperature 98.9 F Pain Level 7 O2 % BldC Oximetry 95 % BMI (Body Mass Index) 25.9 kg/m2 04/26/2019 11:04am Height 64 inches 5'4" Weight 151.00 lb Heart Rate 72 /min BP Systolic Sitting 120 mmHg BP Diastolic Sitting 74 mmHg Respiratory Rate 18 /min BMI (Body Mass Index) 25.9 kg/m2 Results Test Acquired Date Facility Test Result H/L Range Note Catecholamine 24HR 2019 [facility] Urine Collection 24 h Urine Fract [address] [place] [address] [phone] Urine Total Volume 1000 mL Urine Norepinephrine 30 mcg/24h 15-80 Urine Epinephrine 2.4 mcg/24h <21 Urine Dopamine 124 mcg/24h 65-400 1 Sophie Igg AB Reflex 01/20/2019 [facility] SS-A/Ro Antibody <0.2 U [address] [place] [address] [phone] SS-B/La Antibody <0.2 U 3 Sm (Tejeda) IgG Antibody <0.2 U 4 APARTMENT PROPERTY MA[employer]GER Antibody, IgG <0.2 U 5 Scl-70 (Scleroderma) Antibody <0.2 U 6 Riana-1 Antibody <0.2 U 7 Laboratory test 01/20/2019 [facility] Complement C3 105 mg/dL 75 - 175 [address] [place] [address] [phone] Complement C4 26 mg/dL 14 - 40 9 Anti Double Stranded Dna AB <12.3 IU/mL 10 Porphyrins 01/20/2019 [facility] Porphyrins See Comment [address] [address] [phone] Porphyrins Interpretation See Comment 12 Total Porphyrins <1.0 g/dL <=1.0 Alkaline Phos 01/20/2019 [facility] Alkaline 67 U/L 35 - 104 Isoenzymes [address] [facility] [place] [place] [address] [phone] Alp Liver 1% 66.8 % 27.8-76.3 Alp Liver 1 44.8 IU/L 16.2-70.2 Alp Liver 2% 3.2 % 0.0-8.0 Alp Liver 2 2.1 IU/L 0.0-5.8 Alp Bone % 30.0 % 19.1-67.7 Alp Bone 20.1 IU/L 12.1-42.7 Alp Intestine % 0.0 % 0.0-20.6 Alp Intestine 0.0 IU/L 0.0-11.0 Alp Placental NotPresent 13 Anca AB Ser If 01/20/2019 [facility] C-Anca Negative Negative [address] [place] [address] [phone] P-Anca Negative Negative 14 Laboratory test 01/20/2019 [facility] Angiotension 11 U/L Abnormal 16 - 15 finding [address] [facility] Converting [address] [place] [address] Enzyme [phone] 1 ADDITIONAL INFORMATION This test was developed and its performance characteristics determined by [facility] in a manner consistent with CLIA requirements. This test has not been cleared or approved by the U.S. Food and Drug Administration. Test Performed by: [facility] [email or web address] [facility] [address] [place] [address] 2 REFERENCE VALUE <1.0 (Negative) 3 REFERENCE VALUE <1.0 (Negative) 4 REFERENCE VALUE <1.0 (Negative) 5 REFERENCE VALUE <1.0 (Negative) 6 REFERENCE VALUE <1.0 (Negative) 7 REFERENCE VALUE <1.0 (Negative) Test Performed by: [facility] [employer] [address] [place] [address] 8 Test Performed by: [facility] [employer] [place] [address] 9 Test Performed by: [place] [address] 10 REFERENCE VALUE <30.0 (Negative) Test Performed by: [facility] [place] [address] 11 RESULT: Roel Bullock M.D., Ph.D. 12 Total plasma porphyrins are normal, fractionation not performed. ADDITIONAL INFORMATION Spectrofluorometry This test was developed and its performance characteristics determined by [facility] in a manner consistent with CLIA requirements. This test has not been cleared or approved by the U.S. Food and Drug Administration. Test Performed by: [facility] - [address] [address] 13 REFERENCE VALUE Not present Test Performed by: [facility] - [address] [address] 14 Negative for cANCA and pANCA patterns by immunofluorescence. ADDITIONAL INFORMATION This test was developed and its performance characteristics determined by [facility] in a manner consistent with CLIA requirements. This test has not been cleared or approved by the U.S. Food and Drug Administration. Test Performed by: [facility] - [facility] [address] [place] [address] 15 Test Performed by: [facility] - [address] [address] Procedures Date Code Description Status 01/03/2019 21818963 Mammogram Completed Medical Devices Description No Information Available Encounters Type Date Location Provider Dx Diagnosis Office Visit 04/26/2019 [place].7 Fibromyalgia 11:15a [facility] Sarabia M54.2 Cervicalgia R90.82 White matter disease, unspecified R42 Dizziness and giddiness Office Visit 02/21/2019 2:40p Rheumatology Teo Dotson0.8 Other disturbances [facility] Nam M.D. of skin sensation R76.0 Raised antibody titer M79.7 Fibromyalgia M54.2 Cervicalgia Office Visit 02/17/2019 Nila Neal0.8 Other disturbances 8:00a Neurologic No of skin sensation [facility] R90.82 White matter disease, unspecified R20.0 Anesthesia of skin R13.10 Dysphagia, unspecified Office Visit 01/17/2019 1:00p Rheumatology Teo Dotson0Marco8 Other disturbances [facility] Nam M.D. of skin sensation R76.0 Raised antibody titer R90.82 White matter disease, unspecified R23.2 [place] Office Visit 01/13/2019 1:45p [place] Thierry Sandoval, R40.4 Transient Neurologic M.D. alteration of [facility] Physician awareness R20.0 Anesthesia of skin R13.10 Dysphagia, unspecified M79.7 Fibromyalgia R42 Dizziness and giddiness M54.2 Cervicalgia Assessments Date Code Description Provider 05/23/2019 M54.5 Low back pain Teo Nam M.D. 05/23/2019 M79.7 Fibromyalgia Teo Nam M.D. 05/23/2019 M54.2 Cervicalgia Teo Nam M.D. 05/23/2019 R20.8 Other disturbances of skin sensation Teo Nam M.D. 04/26/2019 M79.7 Fibromyalgia Thierry Sadnoval M.D. 04/26/2019 M54.2 Cervicalgia Thierry Sandoval M.D. 04/26/2019 R90.82 White matter disease, unspecified Thierry Sandoval M.D. 04/26/2019 R42 Dizziness and giddiness Thierry Sandoval M.D. 02/21/2019 R20.8 Other disturbances of skin sensation Teo Nam M.D. 02/21/2019 R76.0 Raised antibody titer eTo Nam M.D. 02/21/2019 M79.7 Fibromyalgia Teo Nam M.D. 02/21/2019 M54.2 Cervicalgia Teo Nam M.D. 02/17/2019 R20.8 Other disturbances of skin sensation Thierry Sandoval M.D. 02/17/2019 R90.82 White matter disease, unspecified Thierry Sandoval M.D. 02/17/2019 R20.0 Anesthesia of skin Thierry Sandoval M.D. 02/17/2019 R13.10 Dysphagia, unspecified Thierry Sandoval M.D. 01/17/2019 R20.8 Other disturbances of skin sensation Teo Nam M.D. 01/17/2019 R76.0 Raised antibody titer Teo Nam M.D. 01/17/2019 R90.82 White matter disease, unspecified Teo Nam M.D. 01/17/2019 R23.2 [place] Teo Nam M.D. 01/13/2019 R40.4 Transient alteration of awareness Thierry Sandoval M.D. 01/13/2019 R20.0 Anesthesia of skin Thierry Sandoval M.D. 01/13/2019 R13.10 Dysphagia, unspecified Thierry Sandoval M.D. 01/13/2019 M79.7 Fibromyalgia Thierry Sandoval M.D. 01/13/2019 R42 Dizziness and giddiness Thierry Sandoval M.D. 01/13/2019 M54.2 Cervicalgia Thierry Sandoval M.D. Plan of Treatment Future Appointment(s):08/22/2019 1:00 pm - Teo Nam M.D. at [facility]08/08/2019 2:30 pm - Thierry Sandoval M.D. at [place] [facility]05/23/2019 - Teo Nam M.D.M54.5 Low back painFollow up:Follow up in 3 months or sooner if ctgupjP57.7 FibromyalgiaReferral:Katina Ledezma FNP-C, Family/NPM54.2 YcnywyzijbjG99.8 Other disturbances of skin sensation Functional Status Description No Information Available Mental Status Description No Information Available Referrals Refer to Reason for Referral Status Appt Date Katina Ledezma FNP-C Please evaluate for hormonal causes of Created chronic fatigue and brain fog and myalgias [address], [place] [id number] [phone] Olga Jeong MD [address] [place] [address] [phone]
--- OUTSIDE RECORDS SUMMARY | 2019-06-29 17:31 | XMS REPORT | Continuity of Care Document ---
:1960 External Reference #:[id number] Author Name Shaniqua Helm MD Address [address] [place] [address] Problems Active Problems Provider Date Multiple sclerosis Cristian Glover PA Onset: 01/13/2018 Note: ??? -- work-up by Neuro 12/2017 Vitamin D deficiency Cristian Glover PA Onset: 01/13/2018 Social History Type Date Description Comments Sex Unknown Tobacco Use Start: Unknown End: Unknown Former Cigarette Smoker Tobacco Use Start: Unknown End: Unknown Patient is a former smoker Smoking Status Reviewed: 06/21/19 Patient is a former smoker Allergies, Adverse Reactions, Alerts Active Allergies Reaction Severity Comments Date Aspirin 11/19/2005 Walnuts 02/16/2018 Medications Active Medications SIG Qnty Indications Ordering Date Provider Naltrexone HCL compounded increasing M79.7 Volodymyr, to 4.5 mg Shaniqua Ayoub MD 0 Powder Cholestyramine dissolve 1 packet in 120units R53.82 Volodymyr, 4gm liquid and drink Shaniqua Ayoub MD 0 Packet daily Pregabalin take one capsule by 90caps M79.7 Volodymyr, 50mg mouth every pm and Shaniqua Ayoub MD 9 Capsules two capsules at bedtime, maximum daily dose = 3cap Breo Ellipta 1 p every day 60units J45.40 Volodymyr, Shaniqua Ayoub MD 9 200-25mcg/Inh Aerosol Escitalopram Oxalate Take One Tablet By 30tabs F41.9 Volodymyr, Mouth Every Day Shaniqua Ayoub MD 9 10mg Tablets Baclofen 1 by mouth three 30tabs M79.7 Volodymyr, 10mg Tablets times a day as needed Shaniqua Ayoub MD 9 Vitamin D3 1 by mouth every day E55.9 [facility], [facility] Shaniqua Ayoub MD 9 Tablets Diltiazem HCL Take One Tablet By 60tabs R00.2 BiterCristian, 30mg Mouth Twice A Day PA 8 Tablets Magnesium Oxide 1 by mouth every 90tabs E83.42 [facility], 400mg night at bedtime Shaniqua Ayoub MD 8 Tablets Omeprazole 1 by mouth every day 60caps K21.0 [facility], 20mg may take second prn Shaniqua Ayoub MD [address] Brandon DUNN Inhale Two Puffs By 8.5units J45.40 [facility], Mouth Twice A Day And Shaniqua Ayoub MD 5 108(90Base) mcg/Act Up To Four Times A Aerosol Day as Needed Calcium 1 po qhs M79.7 Volodymyr, 600/Magnesium Shaniqua Ayoub MD 5 300/Vitamin D 200-100-33.3mg-mg-Un it Capsules Fluticasone 2 sprays in each 16gm J01.00 [facility], Propionate nostril daily Shaniqua Ayoub MD 5 50mcg/Act Suspension Cyanocobalamin Inject 1.5ML 2units D51.9 [facility], Intramuscularly Every Shaniqua Ayoub MD 4 1000mcg/ML Solution Month Carisoprodol Take One-Half To One 30tabs M54.2 [facility], 350mg Tablet By Mouth AT Shaniqua Ayoub MD 3 Tablets Bedtime, Maximum Daily Dose = One Tablet Claritin 1 po qam Volodymyr, 10mg Shaniqua Ayoub MD 0 Capsules Medications Administered in Office Medication SIG Qnty Indications Ordering Provider Date B-12 Injection Shaniqua Helm MD 06/21/2019 Injection B-12 Injection Nurses Schedule [place] 05/18/2019 Injection B-12 Injection Nurses Schedule Rebecca 04/13/2019 Injection B-12 Injection Nurses Schedule Rebecca 03/14/2019 Injection B-12 Injection Nurses Schedule Rebecca 02/08/2019 Injection B-12 Injection Shaniqua Helm MD 02/08/2019 Injection B-12 Injection Nurses Schedule [place] 01/06/2019 Injection B-12 Injection Nurses Schedule Rebecca 11/29/2018 Injection B-12 Injection Nurses Schedule Rebecca 10/28/2018 Injection B-12 Injection Shaniqua Helm MD 09/20/2018 Injection B-12 Injection Nurses Schedule [place] 08/20/2018 Injection B-12 Injection Nurses Schedule Rebecca 07/22/2018 Injection B-12 Injection Shaniqua Helm MD 06/21/2018 Injection B-12 Injection Nurses Schedule [place] 05/14/2018 Injection B-12 Injection Shaniqua Helm MD 04/13/2018 Injection B-12 Injection Nurses Schedule Rebecca 03/08/2018 Injection B-12 Injection Nurses Schedule Rebecca 02/01/2018 Injection B-12 Injection Nurses Schedule Rebecca 12/30/2017 Injection B-12 Injection Nurses Schedule Rebecca 11/26/2017 Injection B-12 Injection Nurses Schedule Rebecca 10/26/2017 Injection B-12 Injection Nurses Schedule Rebecca 09/24/2017 Injection B-12 Injection Nurses Schedule Rebecca 08/24/2017 Injection B-12 Injection Nurses Schedule Rebecca 07/21/2017 Injection B-12 Injection Nurses Schedule Rebecca 06/18/2017 Injection B-12 Injection Nurses Schedule Rebecca 05/12/2017 Injection B-12 Injection Nurses Schedule Rebecca 04/10/2017 Injection B-12 Injection Nurses Schedule Elizabet 03/05/2017 Injection B-12 Injection Lilly Alvarez, N.P. 03/05/2017 Injection B-12 Injection Lilly Alvarez, N.P. 03/05/2017 Injection B-12 Injection Nurses Schedule Elizabet 08/03/2015 Injection B-12 Injection Nurses Schedule [place] 07/02/2015 Injection B-12 Injection Nurses Schedule [place] 06/30/2011 Injection B-12 Injection Nurses Schedule [place] 02/20/2011 Injection B-12 Injection Nurses Schedule [place] 11/18/2010 Injection B-12 Injection Nurses Schedule [place] 10/17/2010 Injection B-12 Injection Nurses Schedule [place] 09/17/2010 Injection B-12 Injection Nurses Schedule [place] 08/16/2010 Injection B-12 Injection Nurses Schedule [place] 07/19/2010 Injection B-12 Injection Nurses Schedule [place] 06/18/2010 Injection B-12 Injection Nurses Schedule [place] 05/16/2010 Injection B-12 Injection Nurses Schedule [place] 04/16/2010 Injection B-12 Injection Nurses Schedule [place] 03/15/2010 Injection B-12 Injection Nurses Schedule [place] 02/11/2010 Injection B-12 Injection Nurses Schedule [place] 01/11/2010 Injection B-12 Injection Nurses Schedule [place] 12/11/2009 Injection B-12 Injection Nurses Schedule [place] 11/08/2009 Injection B-12 Injection Nurses Schedule [place] 10/08/2009 Injection B-12 Injection Nurses Schedule [place] 09/06/2009 Injection B-12 Injection Nurses Schedule [place] 08/06/2009 Injection B-12 Injection Nurses Schedule [place] 07/04/2009 Injection B-12 Injection Nurses Schedule [place] 04/30/2009 Injection B-12 Injection Nurses Schedule [place] 03/29/2009 Injection B-12 Injection Nurses Schedule [place] 02/26/2009 Injection B-12 Injection Nurses Schedule [place] 01/22/2009 Injection B-12 Injection Nurses Schedule [place] 12/19/2008 Injection B-12 Injection Shaniqua Helm MD 11/17/2008 Injection B-12 Injection Nurses Schedule [place] 11/17/2008 Injection B-12 Injection Nurses Schedule [place] 10/16/2008 Injection B-12 Injection Nurses Schedule [place] 09/15/2008 Injection B-12 Injection Shaniqua Helm MD 08/14/2008 Injection B-12 Injection Nurses Schedule [place] 07/12/2008 Injection B-12 Injection Nurses Schedule [place] 06/13/2008 Injection B-12 Injection Nurses Schedule [place] 05/10/2008 Injection B-12 Injection Shaniqua Helm MD 04/03/2008 Injection B-12 Injection Nurses Schedule [place] 03/03/2008 Injection B-12 Injection Nurses Schedule [place] 02/01/2008 Injection B-12 Injection Nurses Schedule [place] 12/31/2007 Injection B-12 Injection Nurses Schedule [place] 11/29/2007 Injection B-12 Injection Nurses Schedule [place] 10/28/2007 Injection B-12 Injection Nurses Schedule [place] 09/27/2007 Injection B-12 Injection Nurses Schedule [place] 08/26/2007 Injection B-12 Injection Shaniqua Helm MD 07/26/2007 Injection B-12 Injection Shaniqua Helm MD 06/24/2007 Injection B-12 Injection Shaniqua Helm MD 05/24/2007 Injection B-12 Injection Shaniqua Helm MD 04/20/2007 Injection B-12 Injection Nurses Schedule [place] 04/20/2007 Injection B-12 Injection Shaniqua Helm MD 03/16/2007 Injection B-12 Injection Shaniqua Helm MD 02/10/2007 Injection B-12 Injection Nurses Schedule [place] 02/10/2007 Injection B-12 Injection Faviola Irvin RN MS 01/04/2007 Injection BIOMETRICS TECHNICIAN B-12 Injection Nurses Schedule [place] 01/04/2007 Injection B-12 Injection Shaniqua Helm MD 11/30/2006 Injection B-12 Injection Nurses Schedule [place] 11/30/2006 Injection B-12 Injection Shaniqua Helm MD 10/26/2006 Injection B-12 Injection Shaniqua Helm MD 09/22/2006 Injection B-12 Injection Shaniqua Helm MD 08/19/2006 Injection B-12 Injection Nurses Schedule [place] 08/19/2006 Injection B-12 Injection Shaniqua Helm MD 07/20/2006 Injection B-12 Injection Shaniqua Helm MD 06/17/2006 Injection B-12 Injection Nurses Schedule [place] 06/17/2006 Injection B-12 Injection Shaniqua Helm MD 05/12/2006 Injection B-12 Injection Nurses Schedule [place] 05/12/2006 Injection B-12 Injection Bob Kern MD 04/09/2006 Injection B-12 Injection Bob Kern MD 03/09/2006 Injection B-12 Injection Shaniqua Helm MD 02/02/2006 Injection B-12 Injection Shaniqua Helm MD 12/31/2005 Injection B-12 Injection Shaniqua Helm MD 11/19/2005 Injection B-12 Injection Shaniqua Helm MD 10/13/2005 Injection B-12 Injection Shaniqua Helm MD 09/11/2005 Injection B-12 Injection Shaniqua Helm MD 08/11/2005 Injection B-12 Injection Shaniqua Helm MD 07/03/2005 Injection B-12 Injection Bob Kern MD 06/02/2005 Injection B-12 Injection Shaniqua Helm MD 05/01/2005 Injection B-12 Injection Shaniqua Helm MD 03/31/2005 Injection B-12 Injection Shaniqua Helm MD 02/25/2005 Injection B-12 Injection Shaniqua Helm MD 01/20/2005 Injection B-12 Injection Pembine, Courtneyle, N.P. 12/17/2004 Injection B-12 Injection Shaniqua Helm MD 11/12/2004 Injection B-12 Injection Pembine, Mashelle, N.P. 10/09/2004 Injection B-12 Injection Shaniqua Helm MD 08/29/2004 Injection B-12 Injection Pembine, Mashelle, N.P. 07/02/2004 Injection B-12 Injection Pembine, Mashelle, N.P. 05/30/2004 Injection B-12 Injection Shaniqua Helm MD 04/29/2004 Injection B-12 Injection Shaniqua Helm MD 03/27/2004 Injection B-12 Injection MacaShaniqua mendez MD 02/26/2004 Injection B-12 Injection Antonio, Mashelle, N.P. 01/18/2004 Injection B-12 Injection Antonio, Suryahelle, N.P. 12/25/2003 Injection B-12 Injection Pembine, Suryahelle, N.P. 10/23/2003 Injection B-12 Injection Shaniqua Helm MD 09/25/2003 Injection B-12 Injection Bob Kern MD 08/22/2003 Injection B-12 Injection Bob Kern MD 08/15/2003 Injection B-12 Injection Bob Kern MD 08/08/2003 Injection B-12 Injection Shaniqua Helm MD 07/31/2003 Injection Immunizations CPT Code Status Date Vaccine Lot # [id number] Given 03/14/2019 Influenza Vac, Quadrivalent, Split, 0.5mL Dosage, Im Use [id number] Given 03/14/2019 Influenza Vac, Quadrivalent, Split, 0.5mL Dosage, [id number] Im Use 25169 Given 03/08/2018 Influenza Vac, Quadrivalent, Split, 0.5mL Dosage, [id number] Im Use 99296 Given 06/26/2017 Tdap (Adacel) Ages 7 And Above Only [id number] 87634 Given 04/10/2017 Influenza Vac, Quadrivalent, Split, 0.5mL Dosage, [id number] Im Use 06031 Given 04/09/2016 Influenza Vac, Quadrivalent, Split, 0.5mL Dosage, Im Use 56650 Given 03/26/2015 Influenza Vac, Quadrivalent, Split, 0.5mL Dosage, [id number] Im Use 37556 Given 03/23/2014 Afluria Or Fluvirin Flu Vac Intramuscular [id number] 07695 Given 03/23/2014 Afluria Or Fluvirin Flu Vac Intramuscular Q2038 Given 03/14/2013 Fluzone Trivalent Immunization [id number] Q2038 Given 04/19/2012 Fluzone Trivalent Immunization [id number] 78502 Given 03/15/2010 Afluria Or Fluvirin Flu Vac Intramuscular [id number] 60551 Given 05/31/2009 Influenza Virus Vaccine Pandemic Formulation - [id number] 71070 Given 05/31/2009 Administration Swine Flu Vaccine [id number] 09737 Given 03/29/2009 Afluria Or Fluvirin Flu Vac Intramuscular [id number] 14085 Given 03/22/2008 Afluria Or Fluvirin Flu Vac Intramuscular [id number] 33321 Given 04/20/2007 Afluria Or Fluvirin Flu Vac Intramuscular 93459 Given 04/20/2007 Afluria Or Fluvirin Flu Vac Intramuscular [id number] Vital Signs Date Vital Result Comment 06/21/2019 10:55am Weight 153.00 lb Heart Rate 76 /min BP Systolic 134 mmHg BP Diastolic 84 mmHg Height 64 inches 5'4" BMI (Body Mass Index) 26.3 kg/m2 02/08/2019 9:47am Weight 158.00 lb Heart Rate 68 /min BP Systolic 120 mmHg BP Diastolic 80 mmHg Height 64 inches 5'4" BMI (Body Mass Index) 27.1 kg/m2 Results Test Acquired Date Facility Test Result H/L Range Note Drug Screen 06/13/2019 [facility] Urine None Detected None Urine Pain Hydrocodone Detect Clinic Screen Urine Oxycodone Screen None Detected None Detect Urine Fentanyl Screen None Detected None Detect Urine Methadone Screen None Detected None Detect Urine Buprenorphine Screen None Detected None Detect Urine Amphetamine Screen None Detected None Detect Urine Barbiturates Screen None Detected None Detect Urine Benzodiazepine Screen None Detected None Detect Urine Cannabinoids Screen None Detected None Detect Urine Cocaine Screen None Detected None Detect Urine Opiates Screen None Detected None Detect Urine Phencyclidine Screen None Detected None Detect 1 1 The specimen was tested at the listed cutoffs: Drug Class Test level (ng/mL) Hydrocodone 300 Oxycodone 100 Fentanyl 1 Methadone 150 Buprenorphine 5 Amphetamines 500 Barbiturates 200 Benzodiazepines 200 Cocaine 150 Cannabinoids 50 Opiates 300 PCP 25 Specimen was received without chain of custody. Results should be used for medical purposes only. Procedures Date Code Description Status 05/25/2019 [id number] Bone Mineral Density Test Completed 05/18/2019 [id number] Admin Of Inj (Therapeutic Phrophylactic Or Diagnostic Completed Subq Inj 04/13/2019 [id number] Admin Of Inj (Therapeutic Phrophylactic Or Diagnostic Completed Subq Inj 03/14/2019 [id number] Admin Of Inj (Therapeutic Phrophylactic Or Diagnostic Completed Subq Inj 02/08/2019 [id number] Admin Of Inj (Therapeutic Phrophylactic Or Diagnostic Completed Subq Inj 01/06/2019 72999 Admin Of Inj (Therapeutic Phrophylactic Or Diagnostic Completed Subq Inj 01/03/2019 [id number] Mammogram Completed 12/10/2017 [id number] Mammogram Completed 04/16/2016 [id number] Mammogram Completed 12/11/2014 [id number] Colonoscopy Completed 10/18/2012 [id number] Bone Mineral Density Test Completed 10/18/2012 [id number] Mammogram Completed Medical Devices Description No Information Available Encounters Type Date Location Provider Dx Diagnosis Office Visit 02/08/2019 10:00a Shaniqua BarbozaMD M54.2 Cervicalgia M79.7 Fibromyalgia F41.9 Anxiety disorder, unspecified R00.2 Palpitations M25.50 Pain in unspecified joint R53.82 Chronic fatigue, unspecified R42 Dizziness and giddiness Z68.27 Body mass index (BMI) 27.0-27.9, adult Assessments Date Code Description Provider 06/21/2019 M81.0 Age-related osteoporosis without current Shaniqua Helm MD pathological fracture 06/21/2019 D51.9 Vitamin B12 deficiency anemia, unspecified Shaniqua Helm MD 06/21/2019 M54.2 Cervicalgia Shaniqua Helm MD 06/21/2019 M79.7 Fibromyalgia Shaniqua Helm MD 06/21/2019 F41.9 Anxiety disorder, unspecified Shaniqua Helm MD 06/21/2019 R53.82 Chronic fatigue, unspecified Shaniqua Helm MD 06/21/2019 K20.0 Eosinophilic esophagitis Shaniqua Helm MD 06/21/2019 E55.9 Vitamin D deficiency, unspecified Shaniqua Helm MD 06/21/2019 E04.2 Nontoxic multinodular goiter Shaniqua Helm MD 06/21/2019 K21.0 Gastro-esophageal reflux disease with Shaniqua Helm MD esophagitis 06/21/2019 M75.02 Adhesive capsulitis of LEFT shoulder Shaniqua Helm MD 06/21/2019 D72.819 Decreased white blood cell count, Shaniqua Helm MD unspecified 06/21/2019 M54.5 Low back pain Shaniqua Helm MD 06/21/2019 M54.6 Pain in thoracic spine Shaniqua Helm MD 06/21/2019 Z68.26 Body mass index (BMI) 26.0-26.9, adult Shaniqua Helm MD 05/18/2019 D51.9 Vitamin B12 deficiency anemia, unspecified Shaniqua Helm MD 05/18/2019 D51.9 Vitamin B12 deficiency anemia, unspecified Nurses Schedule [facility] 04/13/2019 D51.9 Vitamin B12 deficiency anemia, unspecified Shaniqua Helm MD 03/14/2019 D51.9 Vitamin B12 deficiency anemia, unspecified Shaniqua Helm MD 03/14/2019 D51.9 Vitamin B12 deficiency anemia, unspecified Nurses Schedule [place] 03/14/2019 Z23 Encounter for immunization Shaniqua Helm MD 02/08/2019 D51.9 Vitamin B12 deficiency anemia, unspecified Shaniqua Helm MD 02/08/2019 M54.2 Cervicalgia Shaniqua Helm MD 02/08/2019 D51.9 Vitamin B12 deficiency anemia, unspecified Nurses Schedule [place] 02/08/2019 M79.7 Fibromyalgia Shaniqua Helm MD 02/08/2019 F41.9 Anxiety disorder, unspecified Shaniqua Helm MD 02/08/2019 R00.2 Palpitations Shaniqua Helm MD 02/08/2019 M25.50 Pain in unspecified joint Shaniqua Helm MD 02/08/2019 R53.82 Chronic fatigue, unspecified Shaniqua Helm MD 02/08/2019 R42 Dizziness and giddiness Shaniqua Helm MD 02/08/2019 Z68.27 Body mass index (BMI) 27.0-27.9, adult Shaniqua Helm MD 01/06/2019 D51.9 Vitamin B12 deficiency anemia, unspecified Shaniqua Helm MD 01/06/2019 D51.9 Vitamin B12 deficiency anemia, unspecified Nurses Schedule [place] Plan of Treatment Future Appointment(s):07/22/2019 10:15 am - Shaniqua Helm MD at [id number] - Shaniqua Helm,MDM81.0 Age-related osteoporosis without current pathological fractureFollow up:1 mos 30with BW minD51.9 Vitamin B12 deficiency anemia, nenwgtiajiuD39.2 JbwhqyerlpcL32.7 FibromyalgiaNew Medication:Naltrexone HCL - compounded increasing to 4.5 mgF41.9 Anxiety disorder, yvfepndevwvG07.82 Chronic fatigue, unspecifiedNew Medication:Cholestyramine 4 gm - dissolve 1 packet in liquid and drink zfkrlD02.0 Eosinophilic rconjcpbvtwZ73.9 Vitamin D deficiency, zalgnztvqehM66.2 Nontoxic multinodular nzfyklN69.0 Gastro-esophageal reflux disease with oxsjejvxlqlO97.02 Adhesive capsulitis of LEFT ssqwcmalJ78.819 Decreased white blood cell count, hzvfjdwzqgaE38.5 Low back painM54.6 Pain in thoracic spineNew Xrays:MRI,Spinal Canal, Thoracic W/O Cont, Ordered: 06/21/19MRI, Spinal Canal, Lumbar, No Contr, Ordered: 06/21/19Z68.26 Body mass index (BMI) 26.0-26.9, adultAllComments:> 45 MIN SPENT IN FACE TO FACE TIME > 50% OF WHICH WAS ON COUNSELING need to tx OP, fibormyalgia and chronic pain management Functional Status Description No Information Available Mental Status Description No Information Available Referrals Description No Information Available
[2019-06-29 17:42] VITALS: BP 145/91
--- NOTE | 2019-06-29 17:57 | UC ---
Back Pain HPI - HPI Summary HPI Summary: Per nut orchardist: "Hx of chronic back pain (images and treatments mainly done at [place]) . 2 weeks ago had a bone density scan and was dx with osteoporosis. Yesterday tried to do so walking, nothing strenuous. When she got up from chair,she had severe pain. Pain moves over left butt cheek and comes across the hip to the front. Normally prescribed pain med and muscle relaxers are not touching it. Ibuprofen took a little of the edge off. " -she has not ahd any falls or trauma. the pain started suddenly as she was trying to get up from reclined position in recliner. -denies loss of bowel/bladder function. no saddle anesthesia. -has chronic left leg radiculitis/numbing -has chronic constipation. -T score is -2.8. -she states that she does not want narcotics. recently started on tramadol. she takes soma and another msulce relxant as needed. doesnt drive. is in waiting room. takes lyrica. - History of Current Complaint Chief Complaint: UCBackPain Stated Complaint: LOWER BACK PAIN Time Seen by Provider: 06/29/19 17:39 Hx Last Menstrual Period: 08/08/16 Pain Intensity: 8 - Allergies/Home Medications Allergies/Adverse Reactions: Allergies Allergy/AdvReac Type Severity Reaction Status Date / Time aspirin Allergy Difficulty Verified 06/13/19 14:52 Swallowing diltiazem [From Cartia XT] Allergy Hives Verified 06/13/19 14:52 environmental Allergy abd Uncoded 07/01/18 14:53 discomfort Home Medications: Home Medications Cholestyramine/Aspartame [Cholestyramine Light Powder] 4 gm PO DAILY 06/29/19 [ History Confirmed 06/29/19] traMADol TAB* [Ultram*] 50 mg PO Q6HR PRN 06/29/19 [History Confirmed 06/29/19] PMH/Surg Hx/FS Hx/Imm Hx - Surgical History Surgical History: Yes Surgery Procedure, Year, and Place: TONSILECTOMY,. Vein surgery left leg - VARICOSE VEINS. CHOLECYSTECTOMY. C-SPINE FUSION - Family History Known Family History: Positive: Other - osteoporosis, Negative: Cardiac Disease - Social History Alcohol Use: Rare Alcohol Amount: 7-8 per week Substance Use Type: None Smoking Status (MU): Never Smoked Tobacco Amount Used/How Often: pack a day for 10 years Have You Smoked in the Last Year: No When Did the Patient Quit Smoking/Using Tobacco: 1992 Review of Systems All Other Systems Reviewed And Are Negative: Yes Constitutional: Positive: Negative Skin: Positive: Negative. Negative: Rash Eyes: Positive: Negative ENT: Positive: Negative Respiratory: Positive: Negative Cardiovascular: Positive: Negative Gastrointestinal: Positive: Negative. Negative: Vomiting, Diarrhea Genitourinary: Positive: Negative. Negative: Dysuria Neurovascular: Positive: Decreased Sensation Musculoskeletal: Positive: Other: - see above Neurological: Positive: Negative Psychological: Positive: Negative Is Patient Immunocompromised?: No Physical Exam Appearance: Pain Distress - very pleasant Vital Signs: Initial Vital Signs Temp 98.9 F 06/29/19 17:33 Pulse 89 06/29/19 17:33 Resp 16 06/29/19 17:33 BP 145/91 06/29/19 17:33 Pulse Ox 100 06/29/19 17:33 Vital Signs Reviewed: Yes Respiratory Exam: Normal Cardiovascular Exam: Normal Musculoskeletal: Positive: Other: - tender at left low lateral back over paraspinal muscles, spine NT. limited flex/ext. + SLR at end range on ipsilateral side. neg on CL side. + 2 patella and achilles b/l and equal. sens intact to LT b/l legs. strength dimished b/l due to pain. abulates on her own. Neurological Exam: Normal Psychological Exam: Normal Skin Exam: Normal Back Pain Course/Dx - Course Course Of Treatment: acute on chronic LBP. she is concerned about a frx w/ a non-traumatic etiology of acute pain d/t the new dx of osteoporsis w/ T score of -2.8. I have reassured her that it is unlikely to have a spontaneous frx from getting up from a chair w/o an traum,atic fall/incident even with a T score if -2.8. she should ahve a conversationw / her PCP regarding medications for OP -risks of radiation exposure from xray outweight benefit w/ very little clinical outcoem that wouild change course at this time, parricularlay with the fact that pcp is in process of ordering an MRI. she is s/p cervical fusion last year w/ a myleogram resulting in a CSF leak requiringa blood patch in anam fall. -se is very understanding of rationale, reassured and agreeabel w/ plan. - Differential Dx/Diagnosis Differential Diagnosis/HQI/PQRI: Cauda Equina Syndrome, Compressive Cord Syndrome, Osteoporosis, Strain, Sprain Provider Diagnosis: Left lumbar radiculitis Discharge ED - Sign-Out/Discharge Documenting (check all that apply): Patient Departure All imaging exams completed and their final reports reviewed: No Studies - Discharge Plan Condition: Stable Disposition: HOME Patient Education Materials: Acute Low Back Pain (ED) Referrals: Shaniqua Jaeger MD [Primary Care Provider] - Additional Instructions: We talked about chronic and acute back pain. There is very low suspicion for a fracture without an injury/fall/trauma even with a T score of -2.8. You do not have and red flag signs. I do recommend that you call your pain specialist and/ or PCP tomorrow with these symptoms. Fortunately you are in the process of getting an MRI ordered that will be more informational than an xray. The xrays are a large radiation load. -You should call your PCP to follow up on your blood pressure as it is slightly elevated today, probably due to the pain. - Billing Disposition and Condition Condition: STABLE Disposition: Home
== END 2019-06-29 18:26 | disposition home or self-care (01) ==
LOC: UCCORT 16:55
DX: M54.16 Radiculopathy, lumbar region (principal); G89.29 Other chronic pain; M54.9 Dorsalgia, unspecified; K59.09 Other constipation; Z98.1 Arthrodesis status; Z91.09 Other allergy status, other than to drugs and biological substances; Z88.8 Allergy status to other drugs, medicaments and biological substances; Z88.6 Allergy status to analgesic agent
CPT/HCPCS: 99212; G0463